=== PATIENT | female | born 1985 | race Caucasian/White ===

== ENCOUNTER 2019-12-24 21:01 | Emergency (ER) | payer SELFPAY ==
[2019-12-24 21:46] VITALS: BP 108/63
--- NOTE | 2019-12-24 21:59 | ER Document Report ---
ED Medical Screen (RME) - General Chief Complaint: Epigastric Pain Stated Complaint: UPPER GASTRIC PAIN Time Seen by Provider: 12/24/19 21:45 Mode of Arrival: Ambulatory Information source: Patient Notes: 34-year-old female presented to ED for complaint of odor to her urine. She states it smells kind of fishy. She is not having any vaginal or pelvic pain. She is also having epigastric pain. 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 She states she smokes 3 to 4 cigarettes a day. She is alert oriented respirations regular nonlabored speaking in full sentences walks with even steady gait. I have greeted and performed a rapid initial assessment of this patient. A comprehensive ED assessment and evaluation of the patient, analysis of test results and completion of medical decision making process will be conducted by an additional ED providers. - Related Data Allergies/Adverse Reactions: No Known Allergies Allergy (Verified 12/24/19 21:43) Physical Exam - Vital signs Vitals: Temp Pulse Resp BP Pulse Ox 99.2 F 68 18 108/63 99 12/24/19 21:44 12/24/19 21:44 12/24/19 21:44 12/24/19 21:44 12/24/19 21:44 Course - Vital Signs Vital signs: Temp Pulse Resp BP Pulse Ox 99.2 F 68 18 108/63 99 12/24/19 21:44 12/24/19 21:44 12/24/19 21:44 12/24/19 21:44 12/24/19 21:44
[2019-12-24 22:49] LABS: ABSOLUTE EOSINOPHILS # (AUTO) 0.2 10^3/uL (0.0-0.6); ABSOLUTE LYMPHOCYTES (AUTO) 1.7 10^3/uL (0.5-4.7); ABSOLUTE MONOCYTES (AUTO) 0.3 10^3/uL (0.1-1.4); ABSOLUTE NEUT (AUTO) 2.8 10^3/uL (1.7-8.2); BASOPHILS % (AUTO) 0.4 % (0-2); EOSINOPHILS % (AUTO) 4.4 % (0-6); HEMATOCRIT 34.2 % (36.0-47.0); HEMOGLOBIN 11.2 g/dL (12.0-15.5); LYMPHOCYTES % (AUTO) 34.1 % (13-45); MEAN CORPUSCULAR HEMOGLOBIN 25.7 pg (27.0-33.4); MEAN CORPUSCULAR HGB CONC 32.8 g/dL (32.0-36.0); MEAN CORPUSCULAR VOLUME 78 fl (80-97); MONOCYTES % (AUTO) 5.3 % (3-13); PLATELET COUNT 199 10^3/uL (150-450); RED BLOOD COUNT 4.37 10^6/uL (3.72-5.28); RED CELL DISTRIBUTION WIDTH 15.7 % (11.5-14.0); SEGMENTED NEUTROPHILS % (AUTO) 55.8 % (42-78); TOTAL CELLS COUNTED % (AUTO) 100 %; WHITE BLOOD COUNT 4.9 10^3/uL (4.0-10.5)
[2019-12-24 22:56] LABS: BACTERIA (WET MOUNT) 4+ BACTERIA SEEN; EPITHELIALS (WET MOUNT) 3+ EPITHELIALS SEEN; T.VAGINALIS (WET MOUNT) NO TRICHOMONAS SEEN; WBCS (WET MOUNT) 1+ WBCS SEEN; YEAST (WET MOUNT) NO YEAST SEEN
[2019-12-24 22:58] LABS: APPEARANCE,URINE SLIGHTLY-CLOUDY; BILIRUBIN,URINE NEGATIVE (NEGATIVE); COLOR,URINE YELLOW; GLUCOSE, URINE NEGATIVE (NEGATIVE); KETONES,URINE NEGATIVE (NEGATIVE); PROTEIN,URINE NEGATIVE (NEGATIVE); URINE SPECIFIC GRAVITY 1.021; UROBILINOGEN,URINE NEGATIVE mg/dL (<2.0)
[2019-12-24 23:01] LABS: ALBUMIN 4.4 g/dL (3.5-5.0); ALKALINE PHOSPHATASE 70 U/L (38-126); ANION GAP 8 (5-19); ASPARTATE AMINO TRANSFERASE 32 U/L (14-36); BILIRUBIN,DIRECT 0.3 mg/dL (0.0-0.4); BILIRUBIN,TOTAL 0.3 mg/dL (0.2-1.3); BLOOD UREA NITROGEN 16 mg/dL (7-20); CALCIUM 10.5 mg/dL (8.4-10.2); CARBON DIOXIDE 32 mmol/L (22-30); CHLORIDE 98 mmol/L (98-107); GLUCOSE 88 mg/dL (75-110); TOTAL PROTEIN 7.8 g/dL (6.3-8.2)
[2019-12-25 00:18] LABS: CHLAM PCR NOT DETECTED (NOT DETECT)
== END 2019-12-25 02:38 | disposition left against medical advice (07) ==
LOC: ER 21:01
DX: Z53.21 Procedure and treatment not carried out due to patient leaving prior to being seen by health care provider (principal); R10.13 Epigastric pain; Z98.84 Bariatric surgery status
CPT/HCPCS: 36415; 80053; 81001; 84703; 85025; 87086; 87088; 87186; 87210; 87491; 87591; 99281

== ENCOUNTER 2019-12-25 16:49 | Emergency (ER) | payer SELFPAY ==
[2019-12-25 17:45] VITALS: BP 103/64
== END 2019-12-25 17:29 | disposition left against medical advice (07) ==
LOC: ER 16:49
DX: Z53.21 Procedure and treatment not carried out due to patient leaving prior to being seen by health care provider (principal); R30.9 Painful micturition, unspecified

== ENCOUNTER 2020-07-06 15:42 | Emergency (ER) | payer SELFPAY ==
[2020-07-06 15:48] VITALS: BP 96/50
--- NOTE | 2020-07-06 16:25 | ER Document Report ---
ED Hand/Wrist Injury - General Chief Complaint: Hand Pain Stated Complaint: HAND PAIN Time Seen by Provider: 07/06/20 16:04 Primary Care Provider: JER BACA DO [ACTIVE STAFF] - Follow up in 1 week (for orthopedic follow up) TRAVEL OUTSIDE OF THE [place] IN LAST 30 DAYS: No - HPI Notes: 85-year-old female to the emergency department with complaints of bilateral hand pain that is been ongoing for about 1 month. She describes pain and numbness and tingling that wakes her up at night particularly between the hours of 3 and 4. Occasionally she finds that she is laying on her arms but overall she has pain. She denies any repetitive movements. She does not type often. She is right-hand dominant. She denies any swelling. She denies any blunt injuries or falls. - Related Data Allergies/Adverse Reactions: No Known Allergies Allergy (Verified 12/24/19 21:43) Past Medical History - General Information source: Patient - Social History Smoking Status: Current Every Day Smoker Frequency of alcohol use: None Drug Abuse: None Family History: Reviewed & Not Pertinent Review of Systems - Review of Systems Constitutional: denies: Chills, Fever EENT: No symptoms reported Cardiovascular: denies: Chest pain, Syncope, Dizziness, Lightheaded Respiratory: denies: Cough, Short of breath Gastrointestinal: denies: Abdominal pain, Diarrhea, Nausea, Vomiting Musculoskeletal: See HPI - Bilateral hand pain Skin: No symptoms reported Hematologic/Lymphatic: No symptoms reported Neurological/Psychological: No symptoms reported -: Yes All other systems reviewed and negative Physical Exam - Vital signs Vitals: Temp Pulse Resp BP Pulse Ox 99.4 F 58 L 20 96/50 L 97 07/06/20 15:46 07/06/20 15:46 07/06/20 15:46 07/06/20 15:46 07/06/20 15:46 Interpretation: Normal - General General appearance: Appears well, Alert In distress: None - HEENT Head: Normocephalic, Atraumatic Eyes: Normal Pupils: PERRL Neck: Normal, Supple - Respiratory Respiratory status: No respiratory distress Chest status: Nontender Breath sounds: Normal Chest palpation: Normal - Cardiovascular Rhythm: Regular Heart sounds: Normal auscultation Murmur: No - Abdominal Inspection: Normal Distension: No distension Bowel sounds: Normal Tenderness: Nontender Organomegaly: No organomegaly - Extremities Hip: Nontender - There is no tenderness to palpation of her bilateral hands. There is no swelling or erythema. There is no edema. Negative Phalen's and Tinel's. Okay sign is intact bilaterally. There is no snuffbox tenderness bilaterally. Sensation appears to be grossly intact. - Neurological Neuro grossly intact: Yes Cognition: Normal Orientation: AAOx4 [place] Coma Scale Eye Opening: Spontaneous [place] Coma Scale Verbal: Oriented [place] Coma Scale Motor: Obeys Commands [place] Coma Scale Total: 15 Speech: Normal Motor strength normal: LUE, RUE, LLE, RLE Sensory: Normal - Psychological Associated symptoms: Normal affect, Normal mood - Skin Skin Temperature: Warm Skin Moisture: Dry Skin Color: Normal Course - Re-evaluation Re-evalutation: 07/06/20 Impression: Bilateral hand pain that are suspicious for carpal tunnel syndrome. We will place her in a Velcro wrist splints and have her follow with orthopedist. Will send home with NSAIDs,Medrol Dosepak as well as muscle relaxant. X-rays are reassuring. Will discharge home - Vital Signs Vital signs: Temp Pulse Resp BP Pulse Ox 99.4 F 58 L 20 96/50 L 97 07/06/20 15:46 07/06/20 15:46 07/06/20 15:46 07/06/20 15:46 07/06/20 15:46 - Diagnostic Test Radiology reviewed: Image reviewed, Reports reviewed Discharge - Discharge Clinical Impression: Bilateral hand pain Carpal tunnel syndrome Qualifiers: Laterality: bilateral Qualified Code(s): G56.03 - Carpal tunnel syndrome, bilateral upper limbs Condition: Stable Disposition: HOME, SELF-CARE Instructions: Carpal Tunnel Syndrome ([facility]) Additional Instructions: Use wrist splints. Take steroids. Follow-up with orthopedist. Your x-rays today did not show any acute fractures or arthritic changes. Prescriptions: Methylprednisolone [Medrol Dosepack (4 mg/Tab) 21 Tab/Dosepak] 4 mg PO ASDIR PRN #21 tab.ds.pk PRN Reason: Naproxen [Naprosyn] 500 mg PO BID #16 tablet Methocarbamol [Robaxin 500 mg Tablet] 500 mg PO QID #16 tablet Referrals: JER BACA DO [ACTIVE STAFF] - Follow up in 1 week (for orthopedic follow up)
--- NOTE | 2020-07-06 16:40 | RADIOLOGY REPORT (SQ) ---
EXAM DESCRIPTION: HAND BILATERAL 2 VIEWS IMAGES COMPLETED DATE/TIME: 07/06/2020 4:28 pm REASON FOR STUDY: hand pain for over one month COMPARISON: None. FINDINGS: Two views of each hand. Right: No bone, joint or soft tissue abnormality. Left: No bone joint or soft tissue abnormality. TECHNICAL DOCUMENTATION: JOB ID: [id number] Reading location - IP/workstation name: [email or web address]
== END 2020-07-06 16:46 | disposition home or self-care (01) ==
LOC: ER 15:42
DX: G56.03 Carpal tunnel syndrome, bilateral upper limbs (principal); M79.641 Pain in right hand; M79.642 Pain in left hand; R20.0 Anesthesia of skin; F17.200 Nicotine dependence, unspecified, uncomplicated
CPT/HCPCS: 99283

== ENCOUNTER 2020-07-14 19:19 | Emergency (ER) | payer OTHER ==
[2020-07-14] MEDS ORDERED: DIPHENHYDRAMINE HCL 50 MG/ML VIAL IV ONE (20:24)
[2020-07-14] MEDS ORDERED: FAMOTIDINE INJ/PF 20 MG/2 ML SDV IV ONE (20:24)
[2020-07-14] MEDS ORDERED: METHYLPREDNISOLONE INJ 125 MG/2 ML SDV IV ONE (20:24)
[2020-07-14] MEDS ORDERED: NORMAL SALINE 1000 ML 1,000 ML IV ONE (20:24)
--- NOTE | 2020-07-14 20:30 | ER Document Report ---
ED Medical Screen (RME) - General Chief Complaint: Abdominal Pain Stated Complaint: POSSIBLE RASH Time Seen by Provider: 07/14/20 20:12 TRAVEL OUTSIDE OF THE [place] IN LAST 30 DAYS: No - HPI Notes: 07/14/20 20:27 35 yr old female presents today with complaints of systemic hives, abdominal pain and hasn't had a bowel movement in 2 weeks. Patient states that she is passing flatus. Patient states she did try a new perfume at the store today and tonight she started with uncontrollable itching and rash. Has not tried any bqlm-dbe-imurmce medications. 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 States she tried mag citrate, laxatives, different bowel stimulants without any results. States has not had a period in over 4 months. 07/14/20 20:32 I have greeted and performed a rapid initial assessment of this patient. A comprehensive ED assessment and evaluation of the patient, analysis of test results and completion of the medical decision making process will be conducted by additional ED providers. PHYSICAL EXAMINATION: GENERAL: Well-appearing, well-nourished and in no acute distress. NECK: Normal range of motion CV: s1, s2 regular LUNGS: No respiratory distress abd: generalized abd tenderness, no cva tenderness Musculoskeletal: Normal range of motion NEUROLOGICAL: Normal speech, normal gait. SKIN: Warm, Dry, normal turgor, no rashes or lesions noted. Hives on bilateral arms, legs, abdomen - Related Data Allergies/Adverse Reactions: No Known Allergies Allergy (Verified 12/24/19 21:43) Physical Exam - Vital signs Vitals: Temp Pulse Resp BP Pulse Ox 98.8 F 71 17 95/79 L 99 07/14/20 19:44 07/14/20 19:44 07/14/20 19:44 07/14/20 19:44 07/14/20 19:44 Course - Vital Signs Vital signs: Temp Pulse Resp BP Pulse Ox 98.8 F 71 17 95/79 L 99 07/14/20 19:44 07/14/20 19:44 07/14/20 19:44 07/14/20 19:44 07/14/20 19:44
[2020-07-14 21:26] LABS: ABSOLUTE LYMPHOCYTES (AUTO) 2.4 10^3/uL (0.5-4.7); ABSOLUTE MONOCYTES (AUTO) 0.4 10^3/uL (0.1-1.4); ABSOLUTE NEUT (AUTO) 4.1 10^3/uL (1.7-8.2); BASOPHILS % (AUTO) 0.3 % (0-2); EOSINOPHILS % (AUTO) 0.5 % (0-6); HEMATOCRIT 32.5 % (36.0-47.0); HEMOGLOBIN 10.5 g/dL (12.0-15.5); LYMPHOCYTES % (AUTO) 34.3 % (13-45); MEAN CORPUSCULAR HEMOGLOBIN 23.8 pg (27.0-33.4); MEAN CORPUSCULAR HGB CONC 32.4 g/dL (32.0-36.0); MEAN CORPUSCULAR VOLUME 74 fl (80-97); MONOCYTES % (AUTO) 5.1 % (3-13); PLATELET COUNT 186 10^3/uL (150-450); RED BLOOD COUNT 4.41 10^6/uL (3.72-5.28); RED CELL DISTRIBUTION WIDTH 17.1 % (11.5-14.0); SEGMENTED NEUTROPHILS % (AUTO) 59.8 % (42-78); TOTAL CELLS COUNTED % (AUTO) 100 %; WHITE BLOOD COUNT 6.9 10^3/uL (4.0-10.5)
[2020-07-14 21:37] LABS: ALBUMIN 4.7 g/dL (3.5-5.0); ALKALINE PHOSPHATASE 55 U/L (38-126); ANION GAP 8 (5-19); ASPARTATE AMINO TRANSFERASE 29 U/L (14-36); BILIRUBIN,DIRECT 0.3 mg/dL (0.0-0.4); BILIRUBIN,TOTAL 0.4 mg/dL (0.2-1.3); BLOOD UREA NITROGEN 16 mg/dL (7-20); CALCIUM 9.4 mg/dL (8.4-10.2); CARBON DIOXIDE 29 mmol/L (22-30); CHLORIDE 102 mmol/L (98-107); GLUCOSE 98 mg/dL (75-110); POTASSIUM 4.1 mmol/L (3.6-5.0); TOTAL PROTEIN 7.4 g/dL (6.3-8.2)
[2020-07-14 21:38] LABS: C-REACTIVE PROTEIN < 5.0 mg/L (<10.0)
--- NOTE | 2020-07-14 21:50 | RADIOLOGY REPORT (SQ) ---
EXAM DESCRIPTION: X-ray, single view of the chest and two views of the abdomen CLINICAL HISTORY: 35 years Female, no BM in 2 weeks, abd pain COMPARISON: None. FINDINGS: CHEST: There is minimal linear volume loss in the left lung base. No focal consolidation. No pneumothorax or pleural effusion. Heart size is within normal limits. ABDOMEN: Large volume of stool is seen in the colon extending from the rectum to the cecum. Minimal air is seen in the small bowel which is not significantly dilated. No air-fluid levels. No free intraperitoneal air. Gas is noted in the rectal vault. IMPRESSION: Large volume of stool in the colon consistent with a history of constipation. No obstruction or free air. Minimal linear volume loss in the left lung base.
[2020-07-15 01:02] VITALS: BP 103/62
--- NOTE | 2020-07-15 01:06 | ER Document Report ---
ED General - General Chief Complaint: Abdominal Pain Stated Complaint: POSSIBLE RASH Time Seen by Provider: 07/14/20 20:12 TRAVEL OUTSIDE OF THE [place] IN LAST 30 DAYS: No - HPI Notes: Patient is a 35-year-old female who presents to the emergency department for evaluation. First she complains of an urticarial rash. It started on her face, chest, arms. It started last night. She denies any swelling of the lips or tongue. No difficulty breathing. No difficulty swallowing. She used a new perfume last night but complains of no other new exposures. She was treated here per protocols and was feeling significantly improved. Beyond that, patient states she has had severe constipation. She has not had a bowel movement in 2 weeks. She just started Suboxone for a substance abuse issue about 3 weeks ago. She is still passing gas. She is tried magnesium citrate, Colace, other rkiy-kkh-vjwasht laxatives without any significant relief. She has intermittent abdominal cramping but denies any significant abdominal pain. She is not passing any blood. She is passing flatus. - Related Data Allergies/Adverse Reactions: No Known Allergies Allergy (Verified 12/24/19 21:43) Home Medications: suboxone, clonidine,paxil Past Medical History - General Information source: Patient - Social History Smoking Status: Current Every Day Smoker Frequency of alcohol use: None Drug Abuse: None - Former substance abuse, currently on Suboxone Family History: Reviewed & Not Pertinent, Malignancy - Pancreatic cancer in grandmother Psychiatric Medical History: Reports: Hx Anxiety, Hx Depression Review of Systems - Review of Systems Constitutional: No symptoms reported EENT: No symptoms reported Cardiovascular: No symptoms reported Respiratory: No symptoms reported Gastrointestinal: See HPI Genitourinary: No symptoms reported Musculoskeletal: No symptoms reported Skin: See HPI Neurological/Psychological: No symptoms reported Physical Exam - Vital signs Vitals: Temp Pulse Resp BP Pulse Ox 98.8 F 71 17 95/79 L 99 07/14/20 19:44 07/14/20 19:44 07/14/20 19:44 07/14/20 19:44 07/14/20 19:44 - Notes Notes: Vital signs reviewed, please refer to chart. Head is normocephalic, atraumatic. Pupils equal round, reactive to light. Oral mucosa is moist. No lingular, lip, or pharyngeal swelling noted. Neck is supple without meningismus. Heart is regular rate and rhythm. Lungs are clear to auscultation bilaterally. Abdomen is soft, nontender, normoactive bowel sounds throughout. Extremities without cyanosis, clubbing. Posterior calves are nontender. Peripheral pulses are equal. Skin is warm and dry. She is very rare and diffuse urticaria in bilateral axilla, the folds of the neck. Patient is awake, alert, neurological exam is nonfocal. Course - Re-evaluation Re-evalutation: 07/15/20 01:03 Patient presents to the emergency department for evaluation. Laboratory investigations and imaging as were ordered as through triage. The patient was administered Solu-Medrol, Pepcid, Benadryl with significant relief for her urticaria. I am unsure as to whether or not this was the new perfume, certainly there are multiple possible etiologies for urticaria. I will treat as if this is allergic, she will be given a prednisone taper. Otherwise in regards to her constipation, I will prescribe a MiraLAX cleanout. She is given verbal instructions in the ED, will give her written instructions in regards to this as well. She is told that she needs to change her diet, she admits that she has not been eating a healthy diet as of late. I encouraged her to continue with her Suboxone program to avoid any substance abuse relapses. She voiced understanding. She will follow-up with primary care, return to the ED with worsening. - Vital Signs Vital signs: Temp Pulse Resp BP Pulse Ox 98.8 F 71 17 95/79 L 99 07/14/20 19:44 07/14/20 19:44 07/14/20 19:44 07/14/20 19:44 07/14/20 19:44 - Laboratory Result Diagrams: 07/14/20 21:05 07/14/20 21:05 Laboratory results interpreted by me: 07/14/20 21:05 Hgb 10.5 L Hct 32.5 L MCV 74 L MCH 23.8 L RDW 17.1 H - Diagnostic Test Radiology reviewed: Image reviewed, Reports reviewed Radiology results interpreted by me: 07/15/20 01:04 Acute Abdomen Series 07/14/20 20:22 IMPRESSION: Large volume of stool in the colon consistent with a history of constipation. No obstruction or free air. Minimal linear volume loss in the left lung base. Discharge - Discharge Clinical Impression: Urticaria Constipation Qualifiers: Constipation type: drug induced constipation Qualified Code(s): K59.03 - Drug induced constipation Condition: Stable Disposition: HOME, SELF-CARE Instructions: Abdominal Pain ([facility]), Acute Urticaria ([facility]), Constipation ([facility]) Additional Instructions: Do MiraLAX cleanout as prescribed. Please add 1 capful of MiraLAX, or the generic equivalent, to 6 to 8 ounces of water. Drink this every hour, on the hour, until a bowel movement is produced. Try to improve your diet, increase w ater intake, fiber, to prevent constipation in the future. Otherwise, take prednisone as prescribed for hives. Please take this until it is gone. You can take [id number] Claritin or Benadryl as needed for itching, please watch for drowsiness with the Benadryl. Return to the emergency department with worsening or new concerning symptoms of any sort.
== END 2020-07-15 01:20 | disposition home or self-care (01) ==
LOC: ER 19:19
DX: L50.9 Urticaria, unspecified (principal); K59.03 Drug induced constipation; F17.200 Nicotine dependence, unspecified, uncomplicated
CPT/HCPCS: 99284; 96361; 96374; 96375; 36415; 83690; 85025; 81025; 86140; 80053; 74022; J1200; J2930; J7030; S0028